=== PATIENT | female | born 1990 | race African-American/Black ===

== ENCOUNTER 2016-08-15 17:19 | Emergency (ER) | payer OTHER ==
[~2016-08-15] VITALS: Ht 160 cm; Wt 57.0 kg
[2016-08-15 17:25] VITALS: Ht 160 cm; Wt 57.0 kg
[2016-08-15] MEDS ORDERED: HYDROCODONE/APAP (5/325) TAB PO ONE (19:00)
[2016-08-15 19:54] LABS: ADD SCAN DIFF NO
[2016-08-15 19:56] LABS: BASOPHIL # 0.1 10^3/ul (0.0-0.1); BASOPHILS % 0.6 % (0.0-2.0); EOSINOPHILS # 0.3 10^3/ul (0.0-0.5); EOSINOPHILS % 3.8 % (0.0-7.0); HEMOGLOBIN 14.7 g/dl (12.0-16.0); LYMPHOCYTES # 2.8 10^3/ul (0.8-2.9); LYMPHOCYTES % 34.7 % (15.0-51.0); MEAN CORPUSCULAR HEMOGLOBIN 26.4 pg (29.0-33.0); MEAN CORPUSCULAR HGB CONC 32.7 g/dl (32.0-37.0); MEAN CORPUSCULAR VOLUME 80.9 fl (82.0-101.0); MEAN PLATELET VOLUME 9.3 fl (7.4-10.4); MONOCYTE # 0.4 10^3/ul (0.3-0.9); NEUTROPHIL # 4.4 10^3/ul (1.6-7.5); NEUTROPHILS % 55.8 % (39.0-77.0); PLATELET COUNT 267 10^3/UL (140-415); RED BLOOD COUNT 5.56 10^6/ul (4.20-5.40); RED CELL DISTRIBUTION WIDTH 14.5 % (11.5-14.5)
[2016-08-15 19:58] LABS: ADD UMIC YES; URINE BILIRUBIN (Dip) NEGATIVE (NEGATIVE); URINE BLOOD (Dip) NEGATIVE (NEGATIVE); URINE COLOR LT. YELLOW (YELLOW); URINE GLUCOSE (Dip) NEGATIVE (NEGATIVE); URINE KETONES (Dip) NEGATIVE (NEGATIVE); URINE LEUKOCYTE ESTERASE (Dip) TRACE (NEGATIVE); URINE NITRITE (Dip) NEGATIVE (NEGATIVE); URINE TOTAL PROTEIN (Dip) NEGATIVE (NEGATIVE); URINE UROBILINOGEN (Dip) 0.2 E.U./dL (0.1-1.0)
[2016-08-15 20:12] LABS: URINE RBCS NONE SEEN /HPF (0)
[2016-08-15 20:13] LABS: SQUAMOUS EPITHELIAL CELL,UR RARE
[2016-08-15 20:16] LABS: ALBUMIN 4.8 g/dl (3.3-4.9)
[2016-08-15 20:17] LABS: POTASSIUM 3.9 mmol/L (3.5-5.1)
[2016-08-15 20:19] LABS: ALBUMIN/GLOBULIN RATIO 1.2; BILIRUBIN,INDIRECT 0.1 mg/dl (0-1.1); BILIRUBIN,TOTAL 0.1 mg/dl (0.2-1.3); CREATININE 0.77 mg/dl (0.44-1.00); TOTAL PROTEIN 8.8 g/dl (6.1-8.1)
[2016-08-15 20:20] LABS: CALCIUM 9.9 mg/dl (8.4-10.2)
--- NOTE | 2016-08-16 06:34 | RADRPT ---
PROCEDURE: US Pelvis. CLINICAL INDICATION: Pelvic pain. TECHNIQUE: The pelvis was evaluated with transabdominal and transvaginal sonography in the axial a nd sagittal planes. COMPARISON: No prior study is available for comparison. FINDINGS: Uterus: 6.7 x 3.8 x 4.3 cm. Endometrium: 12.0 mm. Right ovary: 4.9 x 2.8 x 2.6 cm. Left ovary: 4.2 x 1.3 x 8-0.2 cm. Uterine masses: None. Ovarian masses: There is a hemorrhagic right ovarian cyst measuring 2.2 cm in maximal dimension, joni ign. The ovaries are otherwise normal. Color Doppler and pulsed Doppler sonography demonstrate norm al flow to the ovaries. Other pelvic masses: None. Free fluid: None. IMPRESSION: 1. Benign right ovarian hemorrhagic cyst measuring 2.2 cm. 2. Otherwise normal pelvic ultrasound. RPTAT: QQ .Ulices Guzman MD, MD Date Time Electronically viewed and signed by .Ulices Guzman MD, MD on 08/15/2016 19:40 .R/
[2016-08-16] MEDS ORDERED: IBUP-1542 PO (10:21)
--- NOTE | 2016-08-16 15:12 | ERD ---
ER Documentation Chief Complaint Date/Time DATE: 08/16/16 TIME: 14:49 Chief Complaint AP TODAY HPI This is a 25 year old -[place] female who presents to the ED with a lower abdominal pain for 1 day. Pt describes the abdominal pain as 5/10 sharp and continuous with a sudden onset. Pain is aggravated upon movement. Pt did not take any medications for symptom relief. Pt states that she experienced the same symptoms a few years ago and was diagnosed with endometriosis. Pt is and denies being sexually active. LMP was 1 month ago. Denies fever, vaginal discharge, nausea, vomiting, dysuria, diarrhea, constipation. Denies ETOH use or smoking. Denies recent sick contacts or foreign travel. Unremarkable medical or surgical history. ROS All systems reviewed and are negative except as per history of present illness. Medications Home Meds Active Scripts Ibuprofen* (Motrin*) 600 Mg Tab, 600 MG PO Q6, #30 TAB Prov:ROSMERY VILLARREAL PA-C 08/16/16 Allergies Allergies: Coded Allergies: No Known Allergy (Unverified , 08/16/16) PMhx/Soc Medical and Surgical Hx: pt denies Medical Hx, pt denies Surgical Hx History of Surgery: No Anesthesia Reaction: No Hx Neurological Disorder: No Hx Respiratory Disorders: No Hx Cardiac Disorders: No Hx Psychiatric Problems: No Hx Miscellaneous Medical Probl: No Hx Alcohol Use: No Hx Substance Use: No Smoking Status: Never smoker Physical Exam Vitals Vital Signs Date Time Temp Pulse Resp B/P Pulse Ox O2 Delivery O2 Flow Rate FiO2 08/15/16 17:25 98.3 72 20 112/72 99 Physical Exam Physical Exam CONST: Well-developed, well-nourished, in no acute distress. Nontoxic in appearance. HEENT: Atraumatic. Normal conjunctiva. EOM intact. TM intact. External ear is normal. Clear oropharynx without erythema. No uvular deviation. Moist mucous membranes. Supple neck. No meningismus. No submandibular induration. RESP: Clear to auscultation bilaterally. No wheezing. CARDIO: Regular rate and rhythm, no murmurs. ABD: Localized tenderness on the suprapubic area. Abdomen is soft and nondistended. Normal bowel sounds. No McBurney's point tenderness. No guarding or rigidity. No peritoneal signs. SKIN: No petechiae or rashes. BACK: No midline or flank tenderness. EXT: No cyanosis or edema. Distal pulses equal and bilateral. NEURO: Awake and alert, appropriate for age. 5/5 strength in all extremities. Normal speech. Steady gait. Result Diagram: 08/15/16193908/15/161939 Results 24 hrs Laboratory Tests Test 08/15/16 19:30 08/15/16 19:40 Urine Color LT. YELLOW Urine Clarity CLEAR Urine pH 7.0 Urine Specific [place] 1.020 Urine Ketones NEGATIVE Urine Nitrite NEGATIVE Urine Bilirubin NEGATIVE Urine Urobilinogen 0.2 E.U./dL Urine Leukocyte Esterase TRACE Urine Microscopic RBC NONE SEEN/HPF Urine Microscopic WBC 0-2/HPF Urine Squamous Epithelial Cells RARE Urine Hemoglobin NEGATIVE Urine Glucose NEGATIVE% Urine Total Protein NEGATIVE White Blood Count 8.010^3/ul Red Blood Count 5.5610^6/ul Hemoglobin 14.7g/dl Hematocrit 45.0% Mean Corpuscular Volume 80.9fl Mean Corpuscular Hemoglobin 26.4pg Mean Corpuscular Hemoglobin Concent 32.7g/dl Red Cell Distribution Width 14.5% Platelet Count 39132^3/UL Mean Platelet Volume 9.3fl Neutrophils % 55.8% Lymphocytes % 34.7% Monocytes % 5.0% Eosinophils % 3.8% Basophils % 0.6% Nucleated Red Blood Cells % 0.0/100WBC Neutrophils # 4.410^3/ul Lymphocytes # 2.810^3/ul Monocytes # 0.410^3/ul Eosinophils # 0.310^3/ul Basophils # 0.110^3/ul Nucleated Red Blood Cells # 0.010^3/ul Sodium Level 141mmol/L Potassium Level 3.9mmol/L Chloride Level 99mmol/L Carbon Dioxide Level 27mmol/L Anion Gap 19 Blood Urea Nitrogen 17mg/dl Creatinine 0.77mg/dl Glucose Level 88mg/dl Calcium Level 9.9mg/dl Total Bilirubin 0.1mg/dl Direct Bilirubin 0.00mg/dl Indirect Bilirubin 0.1mg/dl Aspartate Amino Transf (AST/SGOT) 23IU/L Alanine Aminotransferase (ALT/SGPT) 23IU/L Alkaline Phosphatase 55IU/L Total Protein 8.8g/dl Albumin 4.8g/dl Globulin 4.00g/dl Albumin/Globulin Ratio 1.20 Lipase 343U/L Current Medications Medications (Trade) Dose Ordered Sig/Jolene Route PRN Reason Start Time Stop Time Status Last Admin Dose Admin Acetaminophen/ Hydrocodone Bitart ([place] (5/325)) 1 tab ONCE ONCE PO 08/15/16 19:00 08/15/16 19:01 DC 08/15/16 19:46 PROCEDURE: US Pelvis. CLINICAL INDICATION: Pelvic pain. TECHNIQUE: The pelvis was evaluated with transabdominal and transvaginal sonography in the axial and sagittal planes. COMPARISON: No prior study is available for comparison. FINDINGS: Uterus: 6.7 x 3.8 x 4.3 cm. Endometrium: 12.0 mm. Right ovary: 4.9 x 2.8 x 2.6 cm. Left ovary: 4.2 x 1.3 x 8-0.2 cm. Uterine masses: None. Ovarian masses: There is a hemorrhagic right ovarian cyst measuring 2.2 cm in maximal dimension, benign. The ovaries are otherwise normal. Color Doppler and pulsed Doppler sonography demonstrate normal flow to the ovaries. Other pelvic masses: None. Free fluid: None. IMPRESSION: 1. Benign right ovarian hemorrhagic cyst measuring 2.2 cm. 2. Otherwise normal pelvic ultrasound. RPTAT: QQ .Ulices Guzman MD, MD Date Time Electronically viewed and signed by .Ulices Guzman MD, MD on 08/15/2016 19:40 Procedures/[facility] EMERGENCY DEPARTMENT COURSE/MEDICAL DECISION MAKING This is a 25 year old female with a history of endometriosis who comes to the emergency room secondary to complaints of suprapubic pain for 1 day. The patient was given norco in the department. On re-evaluation, the patient's symptoms improved. CBC, CMP, UA and lipase were ordered, lipase is slightly elevated at 343 and UA shows trace leukocyte esterase. Pelvic ultrasound was ordered and done. Ultrasound result is still pending when the pt left the hospital AGAINST MEDICAL ADVICE. My primary diagnosis is abdominal pain. Differential diagnoses considered but not limited to acute appendicitis, endometriosis, diverticulitis, pancreatitis, cholecystitis, gastritis, pyelonephritis, UTI, constipation, inflammatory bowel disease, ectopic , ovarian torsion Pt has been told about the risks and consequences involved in leaving the hospital, pt signed the leaving the hospital AGAINST MEDICAL ADVICE form. Pt states that she will come back to the hospital the next day. Departure Diagnosis: Primary Impression: Abdominal pain Abdominal location: lower abdomen, unspecified Qualified Code: R10.30 - Lower abdominal pain Condition: Stable Patient Instructions: Abdominal Pain Additional Instructions: Call your primary care doctor tomorrow for an appointment during the next 1-2 days. Return to the emergency department immediately should you have any new or worsening symptoms. Take all medications as directed. RAMONA CELESTE August 16, 2016 14:59
== END 2016-08-15 22:39 | disposition left against medical advice (07) ==
LOC: FTE 17:19
DX: R10.30 Lower abdominal pain, unspecified (principal); R10.2 Pelvic and perineal pain
CPT/HCPCS: 36415; 76830; 76856; 80053; 81001; 83690; 85025; Z7502; Z7610; 81003

== ENCOUNTER 2016-08-16 10:04 | Emergency (ER) | payer OTHER ==
[~2016-08-16] VITALS: Ht 165.1 cm; Wt 56.0 kg
[2016-08-16 10:05] VITALS: Ht 165.1 cm; Wt 56.0 kg
[2016-08-16] MEDS ORDERED: IBUP-1542 PO (10:21)
--- NOTE | 2016-08-16 10:33 | ERD ---
ER Documentation Chief Complaint Date/Time DATE: 08/16/16 TIME: 10:22 Chief Complaint needs ultrasound results from yesterday and work note HPI 25-year-old female presents to the emergency room for results and recheck from yesterday's visit secondary to lower abdominal pain. She states that she was taking a nap yesterday and had sharp pain in the pelvic region, she was unable to stay for her results and had signed out AGAINST MEDICAL ADVICE. She states she is taking ibuprofen and it has seemed to help her pain. She has not had any vaginal bleeding, fevers, chills. There is no associated nausea or vomiting. Patient reports history of ovarian cysts in the past that have ruptured. ROS All systems reviewed and are negative except as per history of present illness. Medications Home Meds Active Scripts Ibuprofen* (Motrin*) 600 Mg Tab, 600 MG PO Q6, #30 TAB Prov:ROSMERY VILLARREAL PA-C 08/16/16 Allergies Allergies: Coded Allergies: No Known Allergy (Unverified , 08/16/16) PMhx/Soc History of Surgery: No Anesthesia Reaction: No Hx Neurological Disorder: No Hx Respiratory Disorders: No Hx Cardiac Disorders: No Hx Psychiatric Problems: No Hx Miscellaneous Medical Probl: No Hx Alcohol Use: No Hx Substance Use: No Smoking Status: Never smoker Physical Exam Vitals Vital Signs Date Time Temp Pulse Resp B/P Pulse Ox O2 Delivery O2 Flow Rate FiO2 08/16/16 10:05 98.0 90 18 116/72 99 Physical Exam General: Well-developed, well-nourished. The patient appears in no acute distress. HEENT: Head is normocephalic, atraumatic. No scleral icterus. Neck: Supple. Nontender. Lungs: Clear to auscultation. Normal air movement. Heart: Regular rate and rhythm. S1 and S2 are normal. No murmurs, gallops, or rubs. Abdomen: Soft, nontender, nondistended. Bowel sounds are normoactive. Extremities: No clubbing or cyanosis. Normal pulses. Moving extremities x 4. No weakness. Neurologic: Alert and oriented 3. No focal deficits. Skin: Normal turgor. No rash or lesions. Results 24 hrs PROCEDURE: US Pelvis. CLINICAL INDICATION: Pelvic pain. TECHNIQUE: The pelvis was evaluated with transabdominal and transvaginal sonography in the axial and sagittal planes. COMPARISON: No prior study is available for comparison. FINDINGS: Uterus: 6.7 x 3.8 x 4.3 cm. Endometrium: 12.0 mm. Right ovary: 4.9 x 2.8 x 2.6 cm. Left ovary: 4.2 x 1.3 x 8-0.2 cm. Uterine masses: None. Ovarian masses: There is a hemorrhagic right ovarian cyst measuring 2.2 cm in maximal dimension, benign. The ovaries are otherwise normal. Color Doppler and pulsed Doppler sonography demonstrate normal flow to the ovaries. Other pelvic masses: None. Free fluid: None. IMPRESSION: 1. Benign right ovarian hemorrhagic cyst measuring 2.2 cm. 2. Otherwise normal pelvic ultrasound. RPTAT: QQ .Ulices Guzman MD, MD Date Time Electronically viewed and signed by .Ulices Guzman MD, MD on 08/15/2016 19:40 Procedures/MDM 25 yo female comes in with a history of lower abdominal pain, patient had a visit yesterday and had a pelvic ultrasound that showed a right ovarian cyst. She does not show any evidence of severe pain, or surgical abdominal process. Abdomen is soft and there are no signs of acute appendicitis. She took ibuprofen and is resting comfortably, suspicion for ovarian torsion is low. Vitals were reviewed and she is afebrile, there does not appear to be any infectious process. She will will be given instructions to continue ibuprofen, she was given a referral list of [facility] for follow-up. Departure Diagnosis: Primary Impression: Ovarian cyst Condition: Good Patient Instructions: Ovarian Cyst Referrals: [facility] [place] [address] [facility] [address] [place] [id number]ABUSLEME CHRISTINE [address] [place] [address] [address] CUELL[place] [address] [place] [place] [id number] [facility] [address] [facility] [place] [address] [address] [place] [address] [facility] [place] [address] [facility] [address] [place] [address] [facility], [facility] [id number] - CHINTAN ALLISON [address], [place] [facility] [address] [address] CERVANTES, SANDRA [address] [facility]. [address], [place] [address] [address]ONY [address]N [address] [place], [place] [id number] Additional Instructions: Call your primary care doctor TOMORROW for an appointment during the next 1-2 days.See the doctor sooner or return here if your condition worsens before your appointment time. ROSMERY VILLARREAL PA-C August 16, 2016 10:33
== END 2016-08-16 10:30 | disposition home or self-care (01) ==
LOC: FTE 10:04
DX: N83.201 Unspecified ovarian cyst, right side (principal)
CPT/HCPCS: 99283